=== PATIENT | female | born 1945 | race Caucasian/White ===

== ENCOUNTER 2021-05-30 08:20 | Day surgery (SDC) | payer OTHER, BC ==
[2021-05-23 12:13] VITALS: BMI 17.6
[2021-05-30 08:38] VITALS: TEMP 97.1
[2021-05-30 09:37] VITALS: PULSE 72
[2021-05-30 10:00] VITALS: BP 111/64
== END 2021-05-30 10:10 | disposition home or self-care (01) ==
LOC: FASU-ENDO 08:20
PROVIDERS: ATTEND Internal Medicine Gastroenterology
PROC: 0DJD8ZZ Inspection of Lower Intestinal Tract, Via Natural or Artificial Opening Endoscopic (ICD-10-PCS; principal; 2021-05-30 09:02)
DX: Z12.11 Encounter for screening for malignant neoplasm of colon (principal)